=== PATIENT | female | born 1990 ===

== ENCOUNTER 2023-09-05 15:20 | Outpatient (REF) | payer MEDICAID, SELFPAY ==
[2023-09-05 15:24] LABS: Abs Immature Grans 0.09 10^3/uL (0.0-0.06); Absolute Basophil Count 0.07 10^3/uL (0.0-0.2); Absolute Eosinophil Count 0.52 10^3/uL (0.0-0.7); Absolute Monocyte Count 0.73 10^3/uL (0.1-0.8); Basophils % 0.6 %; Eosinophils % 4.3 %; HCT 40.8 % (36.0-46.0); HGB 14.4 g/dL (11.2-15.7); Immature Grans % 0.7 %; Lymphocytes % 23.5 %; MCH 34.2 pg (27.0-33.0); MCHC 35.3 % (32.0-36.0); MCV 97 fL (80-95); MPV 11.2 fL (8.0-11.0); Monocytes % 6.1 %; Neutrophils % 64.8 %; Platelet Count 279 10^3/uL (130-400); RBC 4.21 10^6/uL (3.93-5.22); RDW 11.9 % (11.7-14.6); RDW-SD 42.3 fL; WBC 12.02 10^3/uL (4.4-10.8)
[2023-09-05 15:27] LABS: Absolute Lymphocyte Count 2.82 10^3/uL (1.2-3.4); Absolute Neutrophil Count 7.79 10^3/uL (1.2-6.7)
[2023-09-05 16:33] LABS: Anion Gap 11.6 mmol/L (3-11); BUN 9 mg/dL (7-18); CO2 25.4 mmol/L (21.0-32.0); CREATININE 0.8 mg/dL (0.55-1.02); Calcium 8.8 mg/dL (8.5-10.1); Calculated LDL 116 mg/dL (<100); Chloride 101 mmol/L (98-107); Cholesterol 226 mg/dL (<200); Estimated GFR 99.09 (mL/min/1.73m2); Glucose 73 mg/dL (74-106); HDL Cholesterol 66 mg/dL (40-60); Potassium 3.8 mmol/L (3.5-5.1); Sodium 138 mmol/L (136-145); TSH (W/Ref FT4) 36.02 uIU/mL (0.36-3.74); Triglyceride 223 mg/dL (<150)
[2023-09-05 17:03] LABS: FREE T4 0.98 ng/dL (0.76-1.46)
== END 2023-09-05 15:21 | disposition home or self-care (01) ==
LOC: NCHCN 15:20
PROVIDERS: PCP Student in an Organized Health Care Education/Training Program; Visit Provider Student in an Organized Health Care Education/Training Program
DX: E03.9 Hypothyroidism, unspecified (principal); Z13.1 Encounter for screening for diabetes mellitus; Z13.220 Encounter for screening for lipoid disorders
CPT/HCPCS: 80048; 80061; 84439; 84443; 85025

== ENCOUNTER 2024-04-17 13:54 | Outpatient (REF) | payer MEDICAID, SELFPAY ==
[2024-04-17 15:30] LABS: Absolute Basophil Count 0.07 10^3/uL (0.0-0.2); Absolute Eosinophil Count 0.62 10^3/uL (0.0-0.7); Absolute Lymphocyte Count 3.32 10^3/uL (1.2-3.4); Absolute Monocyte Count 0.69 10^3/uL (0.1-0.8); Basophils % 0.6 %; Eosinophils % 5.2 %; HCT 40.2 % (36.0-46.0); HGB 14.2 g/dL (11.2-15.7); Immature Grans % 0.8 %; Lymphocytes % 27.9 %; MCH 33.5 pg (27.0-33.0); MCHC 35.3 % (32.0-36.0); MCV 95 fL (80-95); MPV 10.7 fL (8.0-11.0); Monocytes % 5.8 %; Neutrophils % 59.7 %; Platelet Count 359 10^3/uL (130-400); RBC 4.24 10^6/uL (3.93-5.22); RDW 11.5 % (11.7-14.6); RDW-SD 39.9 fL
[2024-04-17 15:38] LABS: ESR 4 mm/hr (0-20)
[2024-04-17 16:16] LABS: ALT 26 U/L (14-59); AST 18 U/L (15-37); Albumin 4.2 g/dL (3.4-5.0); Alkaline Phosphatase 77 U/L (46-116); BUN 7 mg/dL (7-18); Bilirubin, Total 0.52 mg/dL (0.2-1.0); CREATININE 0.8 mg/dL (0.55-1.02); Calcium 8.8 mg/dL (8.5-10.1); Chloride 103 mmol/L (98-107); Estimated GFR 98.48 (mL/min/1.73m2); Glucose 85 mg/dL (74-106); Potassium 4.1 mmol/L (3.5-5.1); Sodium 138 mmol/L (136-145); TSH (W/Ref FT4) 6.42 uIU/mL (0.36-3.74); Total Protein 7.2 g/dL (6.4-8.2)
[2024-04-17 16:22] LABS: C-Reactive Protein < 0.50 mg/dL (<or=0.5)
[2024-04-17 16:48] LABS: FREE T4 1.06 ng/dL (0.76-1.46)
== END 2024-04-17 13:55 | disposition home or self-care (01) ==
LOC: NCHCN 13:54
PROVIDERS: PCP Student in an Organized Health Care Education/Training Program; Visit Provider Student in an Organized Health Care Education/Training Program
DX: E03.9 Hypothyroidism, unspecified (principal); R10.9 Unspecified abdominal pain
CPT/HCPCS: 80053; 85652; 84439; 84443; 85025; 86140